=== PATIENT | female | born 1985 | race Caucasian/White ===

== ENCOUNTER → 2021-07-05 | Outpatient (CLI) | payer BC ==
[2021-07-06 07:12] LABS: RHEUMATOID ARTHRITIS FACTOR 11.8 IU/mL (0.0-13.9)
== END ==
LOC: LAB 11:12
PROVIDERS: Nurse Practitioner Family
DX: M25.50 Pain in unspecified joint (principal); M79.10 Myalgia, unspecified site
CPT/HCPCS: 82550; 82728; 83520; 85652; 86140; 86200; 86431